=== PATIENT | female | born 1960 | race Caucasian/White ===

== ENCOUNTER 2017-10-06 10:33 | Outpatient (CLI) | payer BC | END 2017-10-06 10:34 | disposition home or self-care (01) | LOC: BICMAMMO 10:33 | PROVIDERS: ATTEND Obstetrics & Gynecology | DX: Z12.31 Encounter for screening mammogram for malignant neoplasm of breast (principal) | CPT/HCPCS: 77063; 77067 ==

== ENCOUNTER 2018-03-06 13:42 | Outpatient (CLI) | payer OTHER | END 2018-03-06 13:43 | disposition home or self-care (01) | LOC: BICRAD 13:42 | DX: G90.529 Complex regional pain syndrome I of unspecified lower limb (principal); G90.519 Complex regional pain syndrome I of unspecified upper limb; G90.59 Complex regional pain syndrome I of other specified site; G89.4 Chronic pain syndrome; G64 Other disorders of peripheral nervous system; M47.896 Other spondylosis, lumbar region; M47.894 Other spondylosis, thoracic region; M47.892 Other spondylosis, cervical region; Z96.9 Presence of functional implant, unspecified | CPT/HCPCS: 72040; 72070; 72100 ==

== ENCOUNTER 2018-12-23 12:33 | Outpatient (CLI) | payer OTHER ==
--- NOTE | 2018-12-23 13:55 | RAD ---
CERVICAL SPINE: 12/23/18 Total of eight views. HISTORY: Rheumatoid arthritis. Neck pain. Cervical vertebrae maintain height and alignment. Degenerative osteophytes are seen anteriorly throug hout but are most pronounced at the C4, C5, C6 and C7 levels. Anterior osteophytes are prominent at t hese levels and are near bridging. The disc spaces are relatively well preserved. Posterior alignment is preserved. Posterior elements s how mild hypertrophy. Epidural stimulator lead is seen with tip at the C4-5 level. IMPRESSION: Degenerative hypertrophic changes of the cervical spine with anterior osteophytes most prominent at C 4, C5, C6 levels. No significant posterior spondylosis. Mild facet hypertrophy. POS: [facility]
== END 2018-12-23 12:34 | disposition home or self-care (01) ==
LOC: BICRAD 12:33
PROVIDERS: ATTEND Internal Medicine Rheumatology
DX: M05.79 Rheumatoid arthritis with rheumatoid factor of multiple sites without organ or systems involvement (principal); M47.812 Spondylosis without myelopathy or radiculopathy, cervical region; M25.78 Osteophyte, vertebrae
CPT/HCPCS: 72052

== ENCOUNTER 2020-01-05 14:29 | Outpatient (CLI) | payer OTHER ==
--- NOTE | 2020-01-05 16:08 | CT ---
CT thoracic spine noncontrast: DATE: 01/05/2020 HISTORY: 59-year-old female with left thoracic radiculopathy. Evaluate position of migrated spinal cord stimul ator leads. Mid back pain. Dr. Cristina discussed the findings by telephone with Dr. Robbins at 3:42 PM 01/05/2020. FINDINGS: 12 rib-bearing vertebrae. Vertebral body heights are maintained. No pleural effusion, and no consolidation identified in the posterior medial lung pruett. No mass or hematoma in the anterior or posterior perivertebral spaces. No thoracic aortic aneurysm. Fatty liver. Dorsal column spinal cord stimulator leads, total of 4: 2 of the leads enter right posterior epidural space at T11-12, and their tips reach the pedicular lev el of T7. One of the leads enters the left posterior epidural space at T11-12, traverses the left lateral epidu ral space a short distance, then crosses over and reaches the anterior epidural space at pedicular level of T11. Then it crosses to the right lateral epidural space, abutting the medial edge of the ri ght T10 pedicle, it then travels superiorly in the right side of the spinal canal until approximately T3 level, when it travels along the right posterior aspect of the spinal canal, and bec omes near midline at approximately T1-2. It is at left paramedian posterior spinal canal up to C5 level, then turned slightly to the right at pedicle level of C5. The distal tip beyond that was not i ncluded on today's CT images, but the shallot packer view suggests that it terminates shortly superior to that at the lower C4 level, as demonstrated on the CT of the cervical spine of 03/25/2019. It is diff icult to rule in or rule out the possibility that this lead could be intrathecal in location in the cervical spine and or upper thoracic spine. Finally, a fourth lead enters the left posterior epidural space at T10-11, then ascends along the lef t lateral aspect of the spinal canal. It begins to turn medially at T6-7, and is at midline in the posterior aspect of spinal canal at T4. There is an approximately 6 x 11 mm ossific excrescence broadly arising from the right ligamentum fla vum, from the pedicle level of T6 to the T6-7 disc level, at the right posterior corner of the spinal canal, occupying approximately 20% of the cross-sectional area. On images throughout the visualized cervical and thoracic spine, the intrathecal contents appear hype rdense, although less dense than that of a myelogram. The patient has not had a recent myelogram, and the reason for this appearance is uncertain. IMPRESSION: 1.) Via 2 generators, there is a total of 4 spinal cord stimulator leads in the thoracic spine. One o f them reaches the mid cervical spine, taking a meandering route, from left posterior spinal canal, crossing midline at anterior spinal canal, ascending right lateral spinal canal, before reaching post erior aspect of spinal canal in the cervical spine. 2) cannot rule in or rule out possibility of intrathecal position of that lead in the C-spine and or upper T-spine. 3) an osseous excrescence protruding into the right posterior aspect of the spinal canal in the mid t horacic spine: Exostosis versus small ossified meningioma. 4) high attenuation of the contents of the thecal sac throughout all levels. Exact etiology uncertain .
== END 2020-01-05 14:30 | disposition home or self-care (01) ==
LOC: BICCT 14:29
PROVIDERS: ATTEND Anesthesiology Pain Medicine
DX: M54.14 Radiculopathy, thoracic region (principal); T85.11 Breakdown (mechanical) of implanted electronic stimulator of nervous system; Z96.82 Presence of neurostimulator
CPT/HCPCS: 72128

== ENCOUNTER 2020-04-06 08:41 | Outpatient (CLI) | payer OTHER ==
[2020-04-06 16:07] LABS: Hemoglobin 14.2 g/dL (12.0-16.0); Mean Corpuscular HGB CONC 34.6 g/dL (32.0-36.0); Mean Corpuscular Hemoglobin 30.1 pg (27.0-31.0); Mean Platelet Volume 8.6 fL (7.4-10.4); Platelet Count 197 thou/uL (130-400); RBC Distribution Width 13.7 % (11.5-14.5); Red Blood Cell (RBC) Count 4.73 mill/uL (4.20-5.40); White Blood Cell (WBC) Count 8.7 thou/uL (4.8-10.8)
[2020-04-06 17:01] LABS: Calcium 9.8 mg/dL (7.8-10.44); Chloride 98 mmol/L (98-107); Potassium 3.4 mmol/L (3.5-5.1); Sodium 137 mmol/L (136-145)
[2020-04-06 17:02] LABS: Glucose 208 mg/dL (70-105)
[2020-04-06 17:03] LABS: Anion Gap 17 mmol/L (10-20); Carbon Dioxide 25 mmol/L (22-29)
[2020-04-06 17:05] LABS: Calc. Creatinine Clearance 0 mL/min (70-130); Estimated GFR-MDRD 65
[2020-04-06 17:06] LABS: BUN (Urea Nitrogen) 10 mg/dL (9.8-20.1)
[2020-04-06 18:10] LABS: INR-International Normal Ratio 0.9; PTT 32.6 sec (22.9-36.1); Prothrombin Time 12.8 sec (12.0-14.7)
[2020-04-07 10:59] LABS: SARS-CoV-2 MS2 Positive; SARS-CoV-2 N Gene Negative; SARS-CoV-2 S Gene Negative; SARS-CoV-2 by NAA Not Detected (NotDetected); SARS-CoV-2 orf1ab Negative
== END 2020-04-06 08:42 | disposition home or self-care (01) ==
LOC: LABBT 08:41
PROVIDERS: ATTEND Surgery
DX: Z01.812 Encounter for preprocedural laboratory examination (principal); G95.9 Disease of spinal cord, unspecified
CPT/HCPCS: 80048; 85027; 85610; 85730; 87635; U0003

== ENCOUNTER 2020-04-06 13:15 | Inpatient (IN) | payer OTHER ==
[2020-04-11] MEDS ORDERED: Bacitracin Zinc Ointment 30 gm TUBE ONE (06:49)
[2020-04-11] MEDS ORDERED: Thrombin 5000 UNITS/5 ML VIAL ONE (06:49)
[2020-04-11] MEDS ORDERED: Famotidine/PF 20 mg/2ml Vial ONE (06:54)
[2020-04-11] MEDS ORDERED: Scopolamine 1.5 mg/72 hour Patch ONE (06:54)
[2020-04-11] MEDS ORDERED: Fentanyl 250 MCG/5 ML VIAL ONE (07:14)
[2020-04-11] MEDS ORDERED: Promethazine HCl 25 MG/ML VIAL ONE (07:14)
[2020-04-11] MEDS ORDERED: Albumin 5% 500 ML ONE (07:15)
[2020-04-11] MEDS ORDERED: Propofol 1,000 MG/100 ML VIAL IV ONE (07:15)
[2020-04-11] MEDS ORDERED: traMADol HCl 50 MG TAB PO PRN (07:17)
[2020-04-11] MEDS ORDERED: Bisacodyl 10 MG SUPP PR PRN (07:17)
[2020-04-11] MEDS ORDERED: diphenhydrAMINE 25 MG CAP PO PRN (07:17)
[2020-04-11] MEDS ORDERED: Milk Of Magnesia 30 ML UDCUP PO PRN (07:17)
[2020-04-11] MEDS ORDERED: Acetaminophen 325 MG TAB PO PRN (07:17)
[2020-04-11] MEDS ORDERED: Promethazine HCl 25 MG/ML VIAL IM PRN ×2 (07:17→09:37)
[2020-04-11] MEDS ORDERED: clonazePAM 0.5 MG TAB PO PRN (07:20)
[2020-04-11] MEDS ORDERED: Midazolam HCl 2 mg/2 ml Vial ONE (07:34)
[2020-04-11] MEDS ORDERED: HYDROmorphone 2 MG/ML VIAL SLOW IVP PRN (09:37)
[2020-04-11] MEDS ORDERED: PACU-Morphine 4MG/ML VIAL SLOW IVP PRN (09:37)
[2020-04-11] MEDS ORDERED: Morphine Sulfate 2 MG/ML SYRINGE SLOW IVP PRN (09:37)
[2020-04-11] MEDS ORDERED: Promethazine HCl 25 MG/ML VIAL SLOW IVP PRN (09:37)
[2020-04-11] MEDS ORDERED: Ondansetron HCl/PF 4 MG/2 ML Vial IVP PRN (09:37)
[2020-04-11] MEDS ORDERED: HYDROmorphone 2 MG/ML VIAL ONE (10:02)
[2020-04-11] MEDS ORDERED: SUGAMMADEX SODIUM 200 MG/2 ML VIAL ONE (10:08)
[2020-04-11] MEDS ORDERED: Fentanyl 100 MCG/2 ML VIAL ONE ×3 (11:33→12:49)
[2020-04-11] MEDS ORDERED: Ondansetron PF 4 MG/2 ML Vial ONE ×2 (11:34→11:42)
[2020-04-11] MEDS ORDERED: Metoclopramide HCl 10 MG/2 ML VIAL ONE (11:42)
[2020-04-11] MEDS ORDERED: PROPOFOL 200 MG/20 ML VIAL ONE (11:42)
[2020-04-11] MEDS ORDERED: PHENYLEPHRINE-NS 100 MCG/ML 10 ML SYRINGE ONE (11:42)
[2020-04-11] MEDS ORDERED: Rocuronium Bromide 10 MG/ML (10ML VIAL) ONE (11:42)
[2020-04-11] MEDS ORDERED: Dexamethasone 20 MG/5 ML VIAL ONE (11:42)
[2020-04-11] MEDS ORDERED: Lidocaine 1% PF 5 ML VIAL ONE (11:42)
[2020-04-11] MEDS: metFORMIN 500 MG TAB PO SCH ×2 (14:20→17:55)
[2020-04-11] MEDS: CEFAZOLIN 2 GM in Premix Bag 1 BAG IVPB SCH ×2 (14:56→19:52)
[2020-04-11] MEDS: Morphine 2 MG/ML VIAL SLOW IVP PRN ×4 (15:06→22:17)
[2020-04-11] MEDS: Sodium Chloride 0.9% 1,000 ML IV SCH ×2 (15:10→19:51)
[2020-04-11 15:28] VITALS: BMI 31.5
[2020-04-11] MEDS: Rosuvastatin 10 MG TAB PO SCH (19:51)
[2020-04-11] MEDS: Zolpidem Tartrate 5 MG TAB PO PRN (19:51)
[2020-04-11] MEDS ORDERED: Dexamethasone 20 MG/5 ML VIAL SLOW IVP SCH (21:00)
[2020-04-11] MEDS ORDERED: Dexamethasone 4 mg/ml Vial SLOW IVP SCH (21:00)
[2020-04-11] MEDS ORDERED: Sodium Chloride For Inhalation 0.9% 3 ML NEB ONE (23:27)
[2020-04-12] MEDS: Morphine 2 MG/ML VIAL SLOW IVP PRN ×2 (00:19→21:07)
[2020-04-12] MEDS: Ondansetron PF 4 MG/2 ML Vial IVP PRN (00:19)
[2020-04-12] MEDS: Cyclobenzaprine 10 MG TAB PO PRN ×3 (01:45→17:45)
[2020-04-12] MEDS: HYDROcodone/Acetaminophen 7.5/325 mg Tablet PO PRN ×5 (01:45→21:36)
[2020-04-12] MEDS: CEFAZOLIN 2 GM in Premix Bag 1 BAG IVPB SCH ×2 (06:11→14:32)
[2020-04-12] MEDS: metFORMIN 500 MG TAB PO SCH ×3 (08:34→17:48)
[2020-04-12] MEDS: Sodium Chloride 0.9% 1,000 ML IV SCH ×2 (10:22→23:22)
--- NOTE | 2020-04-12 10:42 | PRG ---
DATE OF SERVICE: 04/12/2020 Ms. Loving is postoperative day 1. She states she feels as if her left side of her body is weak, but then she states she does not feel that it is necessarily weak and she could move it. She has had left-sided myelopathy and radiculopathy type symptoms in the past. She states her left chest pain, however, is much improved compared to before surgery. She is able to move in bed. She is sore obviously given that she has 3 incisions, although neurologically, she appears to be intact and is doing well. She has no headache. We will start to set her up and work with Therapy today. Very pleased with how she is doing this morning. Job ID: [id number]
[2020-04-12] MEDS ORDERED: REMDESIVIR (EUA) 200 MG in Sodium Chloride 0.9% 250 ML 210 ML IV SCH (12:00)
[2020-04-12] MEDS ORDERED: metFORMIN 500 MG TAB PO PRN (12:00)
[2020-04-12] MEDS ORDERED: Scopolamine 1.5 mg/72 hour Patch TD SCH (12:00)
--- NOTE | 2020-04-12 12:56 | OP ---
DATE OF PROCEDURE: 04/11/2020 LOCATION: OR 12. [employer] CAR[employer]ER MAINTENANCE INSPECTOR: Ritu Eaton PA-C This surgery was done in conjunction with Dr. Zach Robbins. PREPROCEDURE DIAGNOSES: Intradural and lateral extradural placements of spinal cord stimulator leads with the thoracic radiculopathy and risk of myelopathy (leads and battery placed at outside institution). POSTPROCEDURE DIAGNOSES: Intradural and lateral extradural placements of spinal cord stimulator leads with the thoracic radiculopathy and risk of myelopathy (leads and battery placed at outside institution). PROCEDURES PERFORMED: 1. SSEP, MEP, and free run cervical root EMG monitoring during surgery. 2. Removal of extradural lead eccentric to the left. 3. Left T11 hemilaminotomy for removal of intradural lead. 4. Repair of CSF leak due to intradural placement of lead. 5. Removal of right battery pack connected to left-sided placed spinal cord stimulator leads. DESCRIPTION OF PROCEDURE: After informed consent was obtained from the patient, the patient was brought to the OR. Proper patient, pause, and identification were carried out. She was placed under excellent general endotracheal anesthesia and [place] George was secured to her skull. She was then carefully positioned prone on the [place] table and the cervical, thoracic, and lumbar regions were all sterilely cleansed, prepared, and draped. It was clear that there was a midline thoracic leads that entered on the right side and coursed to a left pulse generator that Dr. Robbins wanted to leave in place given the potential benefit, the patient was receiving from this stimulator. However, the left T10-T11 extradural lead and the left T11-T12 intradural leads needed to be removed and these were connected to the right pulse generator. There were anchors off to the left side in the upper lumbar region for both of these two leads. Three incisions were drawn out, one in the midthoracic over the T10, T11, and T12 segment. A small incision drawn out on the left side below this off to the left, where prior an incision had been made for the anchors and the right pulse generator incision drawn out. These areas again were sterilely cleansed, prepared, and draped. Proper patient, pause, and identification were carried out. Baseline SSEP and MEP monitoring along with the free run EMG was all recorded. The midline thoracic wound was then opened. We identified the T10-T11 extradural lead entering and we identified the T11-T12 intradural lead. Using fluoroscopic technique, the T10-T11 extradural lead was removed and all contacts confirmed to be in place. We then identified the T11-T12 lead and a small T11 left-sided hemilaminotomy was performed to allow for my complete identification of where the lead entered the dural tube identified this and under direct fluoroscopic visualization and continuous monitoring, this was removed completely in its entirety. CSF was then found to come from the left T11 entry point from that lead. I then placed a Prolene suture with the muscle pledget over this region to seal the area. No further CSF leak was identified. Dissolvable Gel-Foam and DuraSeal were also placed in this region again to buttress the leak. Valsalva maneuver was done and there was no evidence of leak through Valsalva maneuver. Copious irrigation occurred. We then released the anchor and the pulse generator in the left upper lumbar and right gluteal region respectively and the leads were then pulled from distal to proximal following release of the anchor. The complete left-sided leads and the right pulse generator were removed in their entirety utilizing gross and fluoroscopic visualization. The left pulse generator and right-sided thoracic extradural leads were left in place. Copious irrigation of three wounds occurred throughout as did maximizing hemostasis. The monitoring remained unchanged throughout and the wounds were closed in anatomic layers following sprinkling of vancomycin powder. The patient then emerged from anesthesia. Job ID: [id number]
[2020-04-12] MEDS: Rosuvastatin 10 MG TAB PO SCH ×2 (20:34→21:15)
[2020-04-12] MEDS: Zolpidem Tartrate 5 MG TAB PO PRN (21:51)
[2020-04-13] MEDS: Cyclobenzaprine 10 MG TAB PO PRN ×3 (02:28→18:28)
[2020-04-13] MEDS: HYDROcodone/Acetaminophen 7.5/325 mg Tablet PO PRN ×6 (02:28→22:31)
[2020-04-13] MEDS: metFORMIN 500 MG TAB PO SCH ×2 (09:15→18:28)
[2020-04-13] MEDS: Sodium Chloride 0.9% 1,000 ML IV SCH (11:56)
[2020-04-13] MEDS ORDERED: REMDESIVIR (EUA) 100 MG in Sodium Chloride 0.9% 250 ML 230 ML IV SCH (12:00)
--- NOTE | 2020-04-13 18:27 | PRG ---
DATE OF SERVICE: 04/13/2020 Ms. Loving is postoperative day #2 from removal of left lateral epidural and intradural spinal cord stimulator leads. She is mobilized ambulating with a rolling walker. Ram catheter has been removed. I think it would be best to get her to inpatient rehab to continue her recovery. Job ID: [id number]
[2020-04-13] MEDS: Rosuvastatin 10 MG TAB PO SCH (21:17)
[2020-04-13] MEDS: Zolpidem Tartrate 5 MG TAB PO PRN (21:18)
[2020-04-14] MEDS: HYDROcodone/Acetaminophen 7.5/325 mg Tablet PO PRN ×3 (02:31→10:10)
[2020-04-14] MEDS: Cyclobenzaprine 10 MG TAB PO PRN ×2 (02:31→10:09)
[2020-04-14] MEDS: Sodium Chloride 0.9% 1,000 ML IV SCH (02:34)
[2020-04-14 08:27] VITALS: BP 123/68; TEMP 97.8
[2020-04-14] MEDS: metFORMIN 500 MG TAB PO SCH (10:12)
--- NOTE | 2020-04-14 12:02 | DIS ---
DATE OF ADMISSION: 04/11/2020 DATE OF DISCHARGE: 04/14/2020 DIAGNOSIS: Chronic pain. PROCEDURES: Removal of dorsal column stimulator. DISCHARGE SUMMARY: The patient is a 59-year-old female evaluated by Dr. Durand and recommended for removal of her dorsal column stimulator. Following the surgery, she had considerable postoperative pain and some subjective weakness on the left side. This seemed to improve during her inpatient course and she was able to walk in the department with her walker unassisted. She worked with Physical Therapy and again seemed to improve with time. We discussed the option of inpatient rehab, but the patient decided she would prefer to go home with the assistance of her family. The patient was discharged to home on 04/14/2020. She was provided scripts for [place], tramadol, and Flexeril. She will follow up with Dr. Durand in 2 weeks for postop visit. I have discussed home care and precautions. CADDY/CADDIE SUPERVISOR AWARxE checked prior to discharge by Dr. Durand's Team. Job ID: [id number]
[2020-04-14] MEDS: Ondansetron PF 4 MG/2 ML Vial IVP PRN (12:45)
--- NOTE | 2020-04-19 19:12 | EKG ---
Test Reason : PREOP Blood Pressure : / mmHG Vent. Rate : 062 BPM Atrial Rate : 062 BPM P-R Int : 190 ms QRS Dur : 088 ms QT Int : 416 ms P-R-T Axes : 038 059 051 degrees QTc Int : 422 ms Normal sinus rhythm Normal ECG No previous ECGs available Confirmed by DR. Harman GARCIA MD ([id number]) on 04/19/2020 7:11:27 PM Referred By: CHANDANA Confirmed By:DR. Harman GARCIA MD
== END 2020-04-14 14:30 | disposition home or self-care (01) | DRG 29 ==
LOC: SURG A 04-11 05:55 → SURG B 04-11 13:26
PROVIDERS: ADMIT Surgery; ATTEND Surgery
PROC: 00PU0MZ Removal of Neurostimulator Lead from Spinal Canal, Open Approach (ICD-10-PCS; principal; 2020-04-11)
PROC: 00NX0ZZ Release Thoracic Spinal Cord, Open Approach (ICD-10-PCS; 2020-04-11)
PROC: 4A11X4G Monitoring of Peripheral Nervous Electrical Activity, Intraoperative, External Approach (ICD-10-PCS; 2020-04-11)
PROC: 00QT0ZZ Repair Spinal Meninges, Open Approach (ICD-10-PCS; 2020-04-11)
PROC: 0JPT0MZ Removal of Stimulator Generator from Trunk Subcutaneous Tissue and Fascia, Open Approach (ICD-10-PCS; 2020-04-11)
DX: T85.890A Other specified complication of nervous system prosthetic devices, implants and grafts, initial encounter (principal); G95.9 Disease of spinal cord, unspecified; G95.20 Unspecified cord compression; Y83.9 Surgical procedure, unspecified as the cause of abnormal reaction of the patient, or of later complication, without mention of misadventure at the time of the procedure
CPT/HCPCS: 36416; 76000; 93005; 93010; J0690; J1100; J1170; J2250; J2270; J2405; J2550; J2704; J2765; J3010; J3370; P9045; S0028

== ENCOUNTER 2021-10-23 13:00 | Outpatient (CLI) | payer OTHER | END 2021-10-23 13:01 | disposition home or self-care (01) | LOC: BICMAMMO 13:00 | PROVIDERS: ATTEND Family Medicine | DX: Z12.31 Encounter for screening mammogram for malignant neoplasm of breast (principal); Z98.82 Breast implant status | CPT/HCPCS: 77063; 77067 ==

== ENCOUNTER 2023-12-05 09:36 | Outpatient (CLI) | payer OTHER | END 2023-12-05 09:37 | disposition home or self-care (01) | LOC: BICMAMMO 09:36 | PROVIDERS: ATTEND Student in an Organized Health Care Education/Training Program | DX: N63.10 Unspecified lump in the right breast, unspecified quadrant (principal) | CPT/HCPCS: 77066; G0279 ==

== ENCOUNTER 2023-12-15 13:45 | Outpatient (CLI) | payer OTHER | END 2023-12-15 13:46 | disposition home or self-care (01) | LOC: BICULT 13:45 | PROVIDERS: ATTEND Student in an Organized Health Care Education/Training Program | DX: N63.10 Unspecified lump in the right breast, unspecified quadrant (principal) ==